=== PATIENT | male | born 1975 | race Caucasian/White ===

== ENCOUNTER → 2020-08-15 | Outpatient (CLI) | payer BC, MEDICARE ==
[~2020-08-15] MED LIST: GABA600T7 PO; METH750T87 PO; OXYC10TA6 PO
[2020-08-15 11:54] LABS: ANION GAP 8 mmol/L (5-15); CALCIUM 9.3 mg/dL (8.5-10.1); CHLORIDE 116 mmol/L (98-107); CREATININE 1.37 mg/dL (0.7-1.3); INTERNATIONAL NORMALIZED RATIO 0.94 (0.93-1.1)
[2020-08-15 11:57] LABS: BASOPHILS % (AUTO) 1 % (0-1); EOSINOPHILS % (AUTO) 2 % (1-7); LYMPHOCYTES % (AUTO) 24 % (22-44); MEAN CORPUSCULAR HEMOGLOBIN 29.6 pg (27.5-34.5); MEAN CORPUSCULAR HGB CONC 33.7 g/dL (33.2-36.2); MONOCYTES % (AUTO) 9 % (2-9); NEUTROPHILS % (AUTO) 65 % (42-75); PLATELET COUNT 166 x10^3/uL (130-400); RED BLOOD COUNT 5.99 x10^6/uL (4.38-5.82); RED CELL DISTRIBUTION WIDTH 14.1 % (9.4-14.8)
[2020-08-15 11:58] LABS: MD NO
== END | disposition home or self-care (01) ==
LOC: STAR 10:29
PROVIDERS: ATTEND Neurological Surgery
DX: Z01.812 Encounter for preprocedural laboratory examination (principal); Z20.828 Contact with and (suspected) exposure to other viral communicable diseases; R94.31 Abnormal electrocardiogram [ECG] [EKG]; M54.16 Radiculopathy, lumbar region
CPT/HCPCS: 71046; 80048; 85025; 85610; 85730; 87635; 93005

== ENCOUNTER 2020-08-20 09:18 | Day surgery (SDC) | payer BC, MEDICARE ==
[~2020-08-20] VITALS: Ht 195.6 cm; Wt 127.4 kg
[~2020-08-20 09:18] MED LIST changes: +BACITRACIN 50,000 UNIT ONE; +BUPIVACAINE/PF 0.25% ONE; +EPINEPHRINE 1 MG/ML, 1ML ONE; +THROMBIN 20,000 UNIT VIAL TP ONE
[2020-08-20] MEDS ORDERED: CHLORHEXIDINE 15 ML UDC MM ONE (10:00)
[2020-08-20] MEDS ORDERED: LIDOCAINE-MPF 1%, 2ML INFIL ONE (10:00)
[2020-08-20] MEDS ORDERED: LACTATED RINGERS 1,000 ML IV SCH (10:00)
[2020-08-20 10:11] LABS: ANION GAP 7 mmol/L (5-15); CALCIUM 9.9 mg/dL (8.5-10.1); CHLORIDE 111 mmol/L (98-107); CREATININE 1.47 mg/dL (0.7-1.3)
[2020-08-20] MEDS ORDERED: FENTANYL PF 250 MCG/5ML ONE (10:19)
[2020-08-20] MEDS ORDERED: MIDAZOLAM 1 MG/ML, 2ML ONE (10:19)
[2020-08-20] MEDS ORDERED: CEFAZOLIN 1,000 MG ONE (11:43)
[2020-08-20] MEDS ORDERED: DEXAMETHASONE 4 MG/ML, 1ML ONE (11:43)
[2020-08-20] MEDS ORDERED: PROPOFOL 10 MG/ML, 20ML ONE (11:43)
[2020-08-20] MEDS ORDERED: ONDANSETRON 2MG/ML, 2ML ONE (11:43)
[2020-08-20] MEDS ORDERED: SUCCINYLCHOLINE 20 MG/ML, 10ML ONE (11:43)
[2020-08-20] MEDS ORDERED: NEOSPORIN OINT, 15GM ONE (13:04)
[2020-08-20] MEDS ORDERED: FENTANYL PF 100 MCG/2ML ONE (13:27)
[2020-08-20] MEDS ORDERED: OXYcodone 5 MG/5 ML ORAL.SOL UDC ONE (13:28)
[2020-08-20] MEDS ORDERED: HYDROmorphone 1 MG/ML, 1ML INJ ONE (13:28)
[2020-08-20] MEDS ORDERED: ONDANSETRON 2MG/ML, 2ML IVPush PRN (13:30)
[2020-08-20] MEDS ORDERED: KETOROLAC 30 MG/1 ML IV PRN (13:30)
[2020-08-20] MEDS ORDERED: OXYcodone 5 MG/5 ML ORAL.SOL UDC PO PRN (13:30)
[2020-08-20] MEDS ORDERED: DIAZEPAM 5 MG/ML, 2ML IV PRN ×2 (13:30)
[2020-08-20] MEDS ORDERED: MEPERIDINE/PF 25MG/0.5ML IVPush PRN (13:30)
[2020-08-20] MEDS ORDERED: hydrALAzine 20 MG/ML, 1ML IV PRN (13:30)
[2020-08-20] MEDS ORDERED: LABETALOL 5MG/ML, 20ML IV PRN (13:30)
[2020-08-20] MEDS ORDERED: ALBUTEROL SULFATE 2.5 MG/3 ML NPPB PRN (13:30)
[2020-08-20] MEDS ORDERED: PROMETHAZINE 25 MG/ML, 1ML IV PRN (13:30)
[2020-08-20] MEDS: HYDROmorphone 1 MG/ML, 1ML INJ IV PRN ×2 (13:44→13:55)
[2020-08-20] MEDS: FENTANYL PF 100 MCG/2ML IV PRN ×2 (13:48→13:55)
[2020-08-20] MEDS ORDERED: METHOCARBAMOL 1,000 MG in DEXTROSE 5% 100 ML IV ONE (14:00)
[2020-08-20] MEDS ORDERED: KETOROLAC 30 MG/1 ML ONE (14:06)
[2020-08-20] MEDS ORDERED: KETOROLAC 30 MG/1 ML IM ONE (14:30)
== END 2020-08-20 15:15 | disposition home or self-care (01) ==
LOC: OUT 09:18
PROVIDERS: ATTEND Neurological Surgery
DX: M54.16 Radiculopathy, lumbar region (principal); M48.061 Spinal stenosis, lumbar region without neurogenic claudication; F17.220 Nicotine dependence, chewing tobacco, uncomplicated; Z79.899 Other long term (current) drug therapy; Z98.890 Other specified postprocedural states; Z82.49 Family history of ischemic heart disease and other diseases of the circulatory system
CPT/HCPCS: 36415; 63655; 72072; 80048; 86850; 86900; 95938; 95941; C1713; C1767; C1778; J0171; J0330; J0690; J1100; J1170; J1885; J2250; J2405; J2704; J2800; J3010; J7120